=== PATIENT | male | born 1940 | race Caucasian/White ===

== ENCOUNTER → 2017-11-29 | Outpatient (CLI) | payer OTHER ==
[~2017-11-29] VITALS: Ht 177.8 cm; Wt 104.3 kg
[~2017-11-29] MED LIST: REGADENOSON 0.4 MG/5 ML PF SYG IVP SCH
== END | disposition home or self-care (01) ==
LOC: RAH 08:58
PROVIDERS: ATTEND Family Medicine
DX: I10 Essential (primary) hypertension (principal); I20.1 Angina pectoris with documented spasm; R53.83 Other fatigue
CPT/HCPCS: 78452; 93017; 96374; J2785; A9500 ×2

== ENCOUNTER 2019-07-14 09:55 | Inpatient (IN) | payer OTHER ==
[~2019-07-14] VITALS: Ht 177.8 cm; Wt 106.6 kg
[2019-07-14] MEDS ORDERED: MORPHINE SULFATE 4 MG/1ML SYG ONE (10:30)
[2019-07-14 10:41] LABS: BASOPHILS % (AUTO) 0.5 % (0.0-5.0); HEMATOCRIT 37.9 % (42-54); LYMPHOCYTES % (AUTO) 10.5 % (21.0-51.0); MEAN CORPUSCULAR HEMOGLOBIN 31.9 pg (27.0-33.0); MEAN CORPUSCULAR HGB CONC 33.8 g/dL (32.0-36.0); MEAN CORPUSCULAR VOLUME 94.5 fL (79-99); MONOCYTES % (AUTO) 5.6 % (3.0-13.0); NEUTROPHILS % (AUTO) 78.8 % (40.0-77.0); PLATELET COUNT (AUTO) 126 K/uL (130-400); RED BLOOD CELL COUNT(AUTO) 4.01 MIL/uL (4.50-6.20); RED CELL DISTRIBUTION WIDTH 14.1 % (11.0-15.5); WHITE BLOOD COUNT (AUTO) 7.7 K/uL (4.8-10.8)
[2019-07-14 10:46] LABS: CREATININE 1.2 mg/dL (0.5-1.5); POTASSIUM 3.8 mmol/L (3.5-5.1)
[2019-07-14 10:47] LABS: INR 1.01 (0.85-1.15); PARTIAL THROMBOPLASTIN TIME 30.4 SEC (26.3-35.5); PROTHROMBIN TIME 10.9 SEC (9.6-11.6)
[2019-07-14 10:50] LABS: ALBUMIN 3.8 g/dL (3.5-5.0); BILIRUBIN,TOTAL 0.9 mg/dL (0.2-1.0); TOTAL PROTEIN, SERUM 6.9 g/dL (6.0-8.3)
[2019-07-14 13:43] VITALS: BP 151/80
--- NOTE | 2019-07-14 14:56 | NUR ---
[facility] CM spoke to pt's spouse Lidia Youssef . Discussed dc plans. Per spouse, pt is independent prior to the fall/admission, lives at home with spouse and spouse's brother who has dementia. Spouse verbalized they have a walker, wheelchair, shower chair, cane that is mainly used by brother, but available for pt if needed. Denies any other equipments/services. Feels safe to go back home. Discussed possible need for short term rehab if MD recommends, spouse is agreeable, but prefers for pt to go home as much as possible. Informed spouse pt is pending ortho consult, will wait for MD recommendations. Will call spouse again once closer to DC to discuss any needs. Spouse verbalized understanding, given CM# jesease spouse has a questions regarding POC. DC plan to home vs SNF. CM to cont to follow up. Addendum: 07/14/19 at 1501 by HAWA FRENCH LVN CM Amended: Links added.
[2019-07-14 15:05] LABS: APPEARANCE,URINE Clear (CLEAR); BILIRUBIN,URINE Negative (NEGATIVE); COLOR,URINE Yellow (YELLOW); GLUCOSE, URINE (UA) Negative (NEGATIVE); KETONES,URINE Negative (NEGATIVE); LEUKOCYTE ESTERASE ,URINE Negative (NEGATIVE); NITRATE,URINE Negative (NEGATIVE); OCCULT BLOOD,URINE Negative (NEGATIVE); PH,URINE 6.5 (5.0-8.0); PROTEIN,URINE Negative (NEGATIVE)
[2019-07-14 16:43] VITALS: BP 126/72
[2019-07-14] MEDS: SODIUM CHLORIDE 0.9% 1000ML 1,000 ML IV SCH (17:37)
[2019-07-14] MEDS ORDERED: CLOP75TA32 PO (17:41)
[2019-07-14] MEDS ORDERED: AMLO2.5T4 PO (17:41)
[2019-07-14] MEDS ORDERED: POTA99TA21 PO (17:54)
[2019-07-14] MEDS ORDERED: ALLO300T2 PO (17:54)
[2019-07-14] MEDS ORDERED: LORA10TA7 PO (17:54)
[2019-07-14] MEDS ORDERED: MULT-1203 PO (17:54)
[2019-07-14] MEDS ORDERED: ASCO250T70 PO (17:54)
[2019-07-14] MEDS ORDERED: FISH1CAP63 PO (17:54)
[2019-07-14] MEDS ORDERED: GEMF600T5 PO (17:54)
[2019-07-14] MEDS ORDERED: FURO20TA4 PO (17:54)
[2019-07-14] MEDS ORDERED: CHOL-4 PO (17:54)
[2019-07-14] MEDS ORDERED: VITA1CAP PO (17:54)
[2019-07-14] MEDS ORDERED: LISI-613 PO (17:54)
[2019-07-14] MEDS ORDERED: CINN500C PO (17:54)
[2019-07-14] MEDS ORDERED: FURO40TA5 PO (17:54)
[2019-07-14] MEDS ORDERED: BRIM2.5D OP (18:05)
[2019-07-14] MEDS ORDERED: CARB15DR OP (18:08)
[2019-07-14] MEDS ORDERED: OLOP2.5D5 OS (18:08)
[2019-07-14] MEDS ORDERED: DORZ10DR10 OU (18:11)
[2019-07-14] MEDS ORDERED: LATA7.5D OU (18:11)
[2019-07-14] MEDS ORDERED: DIPH25TA22 PO (18:14)
[2019-07-14 19:20] VITALS: BP 123/75
[2019-07-14] MEDS: LISINOPRIL 20 MG TABLET PO SCH (20:36)
[2019-07-14] MEDS: FUROSEMIDE 20 MG TABLET PO SCH (20:36)
[2019-07-14] MEDS: GEMFIBROZIL 600 MG TABLET PO SCH (20:36)
[2019-07-14] MEDS: ONDANSETRON HCL 4 MG/2 ML VIAL IVP PRN (20:37)
[2019-07-14] MEDS: MEPERIDINE-PF 25 MG/ML SYG IV PRN (20:38)
[2019-07-14] MEDS: DORZOLAMIDE HCL/TIMOLOL MALEAT DROPS 10 ML BOTTLE OU SCH (20:38)
[2019-07-14] MEDS: BRIMONIDINE TARTRATE 0.2% 5 ML BOTTLE OP SCH (20:38)
[2019-07-14] MEDS: ARTIFICAL TEARS SOL 15 ML OP SCH (20:38)
[2019-07-14] MEDS: LATANOPROST 2.5 ML DROPS OU SCH (20:39)
[2019-07-14] MEDS: POTASSIUM GLUCONATE 99 MG PO SCH (20:39)
[2019-07-14 22:22] VITALS: BP 129/73
[2019-07-14] MEDS: DIPHENHYDRAMINE HCL 25 MG CAPSULE PO SCH (22:49)
[2019-07-15] MEDS: ONDANSETRON HCL 4 MG/2 ML VIAL IVP PRN ×2 (00:59→18:56)
[2019-07-15] MEDS: MEPERIDINE-PF 50 MG/ML SYG IVP PRN (00:59)
[2019-07-15 03:55] VITALS: BP 138/82
[2019-07-15] MEDS: SODIUM CHLORIDE 0.9% 1000ML 1,000 ML IV SCH ×2 (05:33→09:02)
[2019-07-15 08:40] VITALS: BP 116/72
[2019-07-15] MEDS: LORATADINE 10 MG TABLET PO SCH (08:59)
[2019-07-15] MEDS: DORZOLAMIDE HCL/TIMOLOL MALEAT DROPS 10 ML BOTTLE OU SCH ×2 (09:00→19:59)
[2019-07-15] MEDS: OLOPATADINE HCL 0.1% 5ML DROPS OS SCH (09:00)
[2019-07-15] MEDS: GEMFIBROZIL 600 MG TABLET PO SCH ×2 (09:00→19:58)
[2019-07-15] MEDS: LATANOPROST 2.5 ML DROPS OU SCH ×2 (09:00→19:59)
[2019-07-15] MEDS: AMLODIPINE BESYLATE 2.5 MG TAB PO SCH (09:00)
[2019-07-15] MEDS: PANTOPRAZOLE SODIUM 40 MG TABLET.DR PO SCH (09:00)
[2019-07-15] MEDS: ARTIFICAL TEARS SOL 15 ML OP SCH ×2 (09:00→20:01)
[2019-07-15] MEDS: LISINOPRIL 20 MG TABLET PO SCH ×2 (09:00→19:57)
[2019-07-15] MEDS ORDERED: PANTOPRAZOLE 40 MG/VIAL IVP SCH (09:00)
[2019-07-15] MEDS: BRIMONIDINE TARTRATE 0.2% 5 ML BOTTLE OP SCH ×2 (09:00→20:03)
[2019-07-15] MEDS: ALLOPURINOL 300 MG TABLET PO SCH (09:01)
[2019-07-15] MEDS: FUROSEMIDE 40 MG TABLET PO SCH (09:01)
[2019-07-15] MEDS: ENOXAPARIN SODIUM 30 MG/0.3 ML SQ SCH (09:02)
[2019-07-15 11:00] VITALS: BP 119/71
[2019-07-15 16:30] VITALS: BP 123/71
[2019-07-15] MEDS: MEPERIDINE-PF 25 MG/ML SYG IV PRN (18:56)
[2019-07-15 19:13] VITALS: BP 124/74
[2019-07-15] MEDS: POTASSIUM GLUCONATE 99 MG PO SCH (19:22)
[2019-07-15] MEDS: DIPHENHYDRAMINE HCL 25 MG CAPSULE PO SCH (19:57)
[2019-07-15] MEDS: FUROSEMIDE 20 MG TABLET PO SCH (19:58)
[2019-07-15 23:23] VITALS: BP 98/68
[2019-07-16 03:37] VITALS: BP 121/69
[2019-07-16] MEDS: SODIUM CHLORIDE 0.9% 1000ML 1,000 ML IV SCH ×2 (04:18→16:42)
[2019-07-16] MEDS: ONDANSETRON HCL 4 MG/2 ML VIAL IVP PRN (04:36)
[2019-07-16] MEDS: MEPERIDINE-PF 25 MG/ML SYG IV PRN (04:36)
[2019-07-16 05:44] LABS: BASOPHILS % (AUTO) 0.5 % (0.0-5.0); EOSINOPHILS % (AUTO) 3.6 % (0.0-8.0); HEMATOCRIT 35.1 % (42-54); LYMPHOCYTES % (AUTO) 12.9 % (21.0-51.0); MEAN CORPUSCULAR HEMOGLOBIN 31.6 pg (27.0-33.0); MEAN CORPUSCULAR VOLUME 95.6 fL (79-99); NEUTROPHILS % (AUTO) 73.3 % (40.0-77.0); PLATELET COUNT (AUTO) 121 K/uL (130-400); RED BLOOD CELL COUNT(AUTO) 3.67 MIL/uL (4.50-6.20); RED CELL DISTRIBUTION WIDTH 14.3 % (11.0-15.5); WHITE BLOOD COUNT (AUTO) 8.4 K/uL (4.8-10.8)
[2019-07-16 06:13] LABS: ALBUMIN 3.3 g/dL (3.5-5.0); BILIRUBIN,TOTAL 1.1 mg/dL (0.2-1.0); CREATININE 1.1 mg/dL (0.5-1.5); POTASSIUM 3.8 mmol/L (3.5-5.1); TOTAL PROTEIN, SERUM 6.4 g/dL (6.0-8.3)
[2019-07-16 08:17] VITALS: BP 132/73
[2019-07-16] MEDS: GEMFIBROZIL 600 MG TABLET PO SCH ×2 (08:49→20:39)
[2019-07-16] MEDS: AMLODIPINE BESYLATE 2.5 MG TAB PO SCH (08:49)
[2019-07-16] MEDS: LISINOPRIL 20 MG TABLET PO SCH ×2 (08:50→20:39)
[2019-07-16] MEDS: PANTOPRAZOLE SODIUM 40 MG TABLET.DR PO SCH (08:50)
[2019-07-16] MEDS: FUROSEMIDE 40 MG TABLET PO SCH (08:50)
[2019-07-16] MEDS: LATANOPROST 2.5 ML DROPS OU SCH ×2 (08:50→20:45)
[2019-07-16] MEDS: LORATADINE 10 MG TABLET PO SCH (08:50)
[2019-07-16] MEDS: ALLOPURINOL 300 MG TABLET PO SCH (08:50)
[2019-07-16] MEDS: OLOPATADINE HCL 0.1% 5ML DROPS OS SCH (08:51)
[2019-07-16] MEDS: DORZOLAMIDE HCL/TIMOLOL MALEAT DROPS 10 ML BOTTLE OU SCH ×2 (08:51→20:45)
[2019-07-16] MEDS: BRIMONIDINE TARTRATE 0.2% 5 ML BOTTLE OP SCH ×2 (08:51→20:45)
[2019-07-16] MEDS: ARTIFICAL TEARS SOL 15 ML OP SCH ×2 (08:51→20:45)
[2019-07-16] MEDS: ENOXAPARIN SODIUM 30 MG/0.3 ML SQ SCH (08:52)
[2019-07-16] MEDS ORDERED: BISACODYL 5 MG TABLET.DR PO PRN (10:00)
[2019-07-16] MEDS ORDERED: BISACODYL 5 MG TABLET.DR PO SCH (10:04)
[2019-07-16 11:35] VITALS: BP 119/63
[2019-07-16 17:46] VITALS: BP 111/58
[2019-07-16 19:00] VITALS: BP 106/61
[2019-07-16] MEDS: DIPHENHYDRAMINE HCL 25 MG CAPSULE PO SCH (20:39)
[2019-07-16] MEDS: FUROSEMIDE 20 MG TABLET PO SCH (20:39)
[2019-07-16] MEDS: POTASSIUM GLUCONATE 99 MG PO SCH (20:46)
[2019-07-16 23:00] VITALS: BP 116/64
[2019-07-17] VITALS (24 sets, daily range): BP systolic 109–132; BP diastolic 60–80
[2019-07-17] MEDS: MEPERIDINE-PF 25 MG/ML SYG IV PRN (03:06)
[2019-07-17] MEDS: SODIUM CHLORIDE 0.9% 1000ML 1,000 ML IV SCH ×2 (06:00→15:51)
[2019-07-17] MEDS ORDERED: LACTATED RINGERS 1000ML 1,000 ML IV ONE (06:05)
[2019-07-17] MEDS ORDERED: SUCCINYLCHOLINE 200MG/10ML SYR ONE (06:35)
[2019-07-17] MEDS ORDERED: PROPOFOL 10 MG/ML 20ML VIAL IV ONE (06:36)
[2019-07-17] MEDS ORDERED: FENTANYL CITRATE PF 50 MCG/1 ML 5ML AMP IV ONE (06:36)
[2019-07-17] MEDS ORDERED: MIDAZOLAM HCL 1 MG/ML 2ML VIAL ONE (06:36)
[2019-07-17] MEDS ORDERED: ROCURONIUM 10MG/1ML SYR 10 MG/ML ML ONE (06:36)
--- NOTE | 2019-07-17 07:00 | NUR ---
PER PATRICIA, RN PATIENT TRANSFERRED TO [facility] FOR ORIF OF RIGHT HIP BY DR. KERR AT 0630.
[2019-07-17] MEDS ORDERED: LIDOCAINE PF 2% 5ML ABBOJECT ONE (07:03)
[2019-07-17] MEDS ORDERED: EPHEDRINE SULFATE 50 MG/ML AMPULE ONE (07:06)
[2019-07-17] MEDS ORDERED: DEXAMETHASONE SOD PHOSPHATE 10MG/ML 1ML VIAL ONE (07:09)
[2019-07-17] MEDS ORDERED: ONDANSETRON HCL 4 MG/2 ML VIAL ONE (07:10)
[2019-07-17] MEDS ORDERED: NEOSTIGMINE 5MG/5ML SYR IV ONE (07:10)
[2019-07-17] MEDS ORDERED: GLYCOPYRROLATE 1 MG/5 ML SYRINGE ONE (07:10)
[2019-07-17] MEDS ORDERED: ALBUMIN (HUMAN) 5% 250 ML IV ONE (07:12)
[2019-07-17] MEDS ORDERED: HETASTARCH IN 0.9 % NACL 500 ML IV ONE (07:12)
[2019-07-17] MEDS ORDERED: CEFAZOLIN SODIUM 1 GM VIAL ONE (07:30)
[2019-07-17] MEDS: PANTOPRAZOLE SODIUM 40 MG TABLET.DR PO SCH (07:30)
[2019-07-17] MEDS ORDERED: MEPERIDINE-PF 25 MG/ML SYG ONE ×2 (08:10→08:19)
[2019-07-17] MEDS: LATANOPROST 2.5 ML DROPS OU SCH ×2 (09:00→20:49)
[2019-07-17] MEDS: BRIMONIDINE TARTRATE 0.2% 5 ML BOTTLE OP SCH ×2 (09:00→20:49)
[2019-07-17] MEDS: LISINOPRIL 20 MG TABLET PO SCH ×2 (09:00→20:47)
[2019-07-17] MEDS: ALLOPURINOL 300 MG TABLET PO SCH (09:00)
[2019-07-17] MEDS: LORATADINE 10 MG TABLET PO SCH (09:00)
[2019-07-17] MEDS: AMLODIPINE BESYLATE 2.5 MG TAB PO SCH (09:00)
[2019-07-17] MEDS: FUROSEMIDE 40 MG TABLET PO SCH (09:00)
[2019-07-17] MEDS: DORZOLAMIDE HCL/TIMOLOL MALEAT DROPS 10 ML BOTTLE OU SCH ×2 (09:00→20:49)
[2019-07-17] MEDS: ARTIFICAL TEARS SOL 15 ML OP SCH ×2 (09:00→20:49)
[2019-07-17] MEDS: GEMFIBROZIL 600 MG TABLET PO SCH ×2 (09:00→20:47)
[2019-07-17] MEDS: OLOPATADINE HCL 0.1% 5ML DROPS OS SCH (09:00)
[2019-07-17] MEDS: ENOXAPARIN SODIUM 30 MG/0.3 ML SQ SCH (09:00)
--- NOTE | 2019-07-17 09:00 | NUR ---
REPORT RECEIVED FROM ANDRZEJ RN (PACU). PATIENT S/P ORIF RIGHT HIP BY DR. KERR UNDER GENERAL ANESTHESIA WITH SCDS IN PLACE, DRESSING DRY AND INTACT. NO DRAINS NOTED. PATIENT ALREADY VOIDED. PATIENT STABLE AT THIS TIME.
--- NOTE | 2019-07-17 12:25 | NUR ---
CM Note: [facility] pending approval CM spoke to pt's spouse Lidia, updated w/POC, made aware discussed dcp w/Dr Cox and recommends rehab. Spouse agreeable for short term rehab placement as it would be difficult for her to fully take care of pt. Aware pt agreed for [facility], spouse is agreeable for [facility]. Spouse requested provider info after [facility]. Informed spouse provider are usually private pay, but will have [facility] made aware and will coordinate w/spouse and pt. Spouse will have to assess pt's home situtation once dc'd home. Spouse verbalized understanding and expressed that she is thankful for the information given. Faxed order, clinicals, PASRR, Covid Assessment, confirmation received. Spoke to Gloria w/[facility], received clinicals, aware pending PT eval and treat, will send notes once available. Aware annticipated dcp 24-48hrs pending surgeon clearance. EMS filled out pending to be faxed w/current date flagged in chart, primary nurse to [facility] once pt ready to DC. Primary nurse aware. CM to cont to follow up. CM informed [facility], stated will contact spouse and will do a home visit once pt is dc'd home.
--- NOTE | 2019-07-17 14:30 | NUR ---
[address] RN FROM [facility] [place] [facility] TO COLLECT TEST SAMPLE FOR COVID 19. MELISSA HERNANDEZ (CHARGE NURSE) ASSISTED WITH PROCEDURE. PENDING RESULTS.
[2019-07-17] MEDS: FUROSEMIDE 20 MG TABLET PO SCH (20:47)
[2019-07-17] MEDS: DIPHENHYDRAMINE HCL 25 MG CAPSULE PO SCH (20:48)
[2019-07-17] MEDS: POTASSIUM GLUCONATE 99 MG PO SCH (20:51)
[2019-07-18] VITALS (9 sets, daily range): BP systolic 92–158; BP diastolic 50–71
[2019-07-18] MEDS: MEPERIDINE-PF 25 MG/ML SYG IV PRN (00:15)
[2019-07-18] MEDS: SODIUM CHLORIDE 0.9% 1000ML 1,000 ML IV SCH ×2 (03:37→15:23)
[2019-07-18] MEDS: PANTOPRAZOLE SODIUM 40 MG TABLET.DR PO SCH (06:48)
[2019-07-18] MEDS ORDERED: APIXABAN 2.5 MG TABLET PO ONE (08:43)
[2019-07-18] MEDS: MEPERIDINE-PF 50 MG/ML SYG IVP PRN (08:55)
[2019-07-18] MEDS: GEMFIBROZIL 600 MG TABLET PO SCH ×2 (08:56→20:31)
[2019-07-18] MEDS: ALLOPURINOL 300 MG TABLET PO SCH (08:57)
[2019-07-18] MEDS: FUROSEMIDE 40 MG TABLET PO SCH (08:57)
[2019-07-18] MEDS: LORATADINE 10 MG TABLET PO SCH (08:57)
[2019-07-18] MEDS: AMLODIPINE BESYLATE 2.5 MG TAB PO SCH (08:57)
[2019-07-18] MEDS: LISINOPRIL 20 MG TABLET PO SCH ×2 (08:58→20:31)
[2019-07-18] MEDS: DORZOLAMIDE HCL/TIMOLOL MALEAT DROPS 10 ML BOTTLE OU SCH ×2 (09:00→20:32)
[2019-07-18] MEDS: BRIMONIDINE TARTRATE 0.2% 5 ML BOTTLE OP SCH ×2 (09:00→20:33)
[2019-07-18] MEDS: ENOXAPARIN SODIUM 30 MG/0.3 ML SQ SCH (09:00)
[2019-07-18] MEDS: OLOPATADINE HCL 0.1% 5ML DROPS OS SCH (09:00)
[2019-07-18] MEDS: LATANOPROST 2.5 ML DROPS OU SCH ×2 (09:00→20:32)
[2019-07-18] MEDS: ARTIFICAL TEARS SOL 15 ML OP SCH ×2 (09:00→20:33)
[2019-07-18] MEDS: ONDANSETRON HCL 4 MG/2 ML VIAL IVP PRN (09:03)
--- NOTE | 2019-07-18 12:33 | NUR ---
cm note spoke to hannah dominguez with [facility] and states pt is still pending approval, still pending their covid swab results. no approval yet. will let cm know when approved. updated Pamela primary nurse.
--- NOTE | 2019-07-18 16:45 | NUR ---
cm note faxed clinical update to hannah with [facility] as requested. still pending approval.
[2019-07-18] MEDS: DIPHENHYDRAMINE HCL 25 MG CAPSULE PO SCH (20:30)
[2019-07-18] MEDS: FUROSEMIDE 20 MG TABLET PO SCH (20:31)
[2019-07-18] MEDS: APIXABAN 2.5 MG TABLET PO SCH (20:31)
[2019-07-18] MEDS: POTASSIUM GLUCONATE 99 MG PO SCH (20:42)
[2019-07-19] MEDS: MEPERIDINE-PF 25 MG/ML SYG IV PRN ×2 (02:25→09:25)
[2019-07-19] MEDS: SODIUM CHLORIDE 0.9% 1000ML 1,000 ML IV SCH ×3 (03:09→21:16)
--- NOTE | 2019-07-19 03:20 | NUR ---
NOTE 0225 PATIENT REPORTS HAVING PAIN ON RIGHT THIGH/HIP AREA. MEDICATED WITH DEMEROL. AT THIS TIME HE ALSO REPORTS FEELING PAIN ON HIS PENIS WHEN HE URINATES AND THAT HE IS ONLY URINATING A LITTLE AT A TIME. NOTED HIS LOWER ABDOMEN LARGER THAN BEFORE. APPLIED SOME GENTLE PRESSURE WITH HIS PERMISSION AND SAYS HE PAIN IS INCREASED ON PENIS AND NOT MUCH ON LOWER ABDOMEN. WILL OBTAIN BLADDER SCANNER TO SEE IF HE IS HOLDING URINE IN BLADDER. EXPLAIN THIS TO PATIENT AND HE IS AGREEABLE. 0238 BLADDER SCANNER USED TO DO SCAN. SCANNER READ GREATER THAN 999ML ON [address] ROGER. [address] ROGER ABOUT PATIENT'S SYMPTOMS AND BLADDER SCAN RESULT. ORDERS RECEIVED TO INSERT NAVARRETE AND LEAVE IN. START PATIENT ON FLOMAX 0.4MG PO DAILY. 0255 INFORMED PATIENT OF NEW ORDERS FOR NAVARRETE PLACEMENT AND FLOMAX ADDED TO HIS MEDICATION REGIMEN. EXPLAINED THAT IS FOR. INSERTED 16FR USING STERILE TECHNIQUE WITHOUT ANY PROBLEMS. INFLATED BALLOON, SECURED CATHETER TO LEG AND ALLOWED TO DRAIN. 0306 NAVARRETE DRAINING INTO DRAINAGE BAG. EMPTIED 1000ML. PATIENT REPORTS STARTING TO FEEL SOME RELIEF OF THE PAIN IN PENIS AND LOWER ABDOMEN.
[2019-07-19 04:00] VITALS: BP 109/59
[2019-07-19] MEDS: PANTOPRAZOLE SODIUM 40 MG TABLET.DR PO SCH (06:27)
[2019-07-19 08:00] VITALS: BP 118/68
[2019-07-19] MEDS: BRIMONIDINE TARTRATE 0.2% 5 ML BOTTLE OP SCH ×2 (09:00→21:00)
[2019-07-19] MEDS: OLOPATADINE HCL 0.1% 5ML DROPS OS SCH (09:00)
[2019-07-19] MEDS: LATANOPROST 2.5 ML DROPS OU SCH ×2 (09:00→21:00)
[2019-07-19] MEDS: ARTIFICAL TEARS SOL 15 ML OP SCH ×2 (09:00→21:00)
[2019-07-19] MEDS: ENOXAPARIN SODIUM 30 MG/0.3 ML SQ SCH (09:00)
[2019-07-19] MEDS: DORZOLAMIDE HCL/TIMOLOL MALEAT DROPS 10 ML BOTTLE OU SCH ×2 (09:00→21:00)
[2019-07-19] MEDS: ALLOPURINOL 300 MG TABLET PO SCH (09:21)
[2019-07-19] MEDS: AMLODIPINE BESYLATE 2.5 MG TAB PO SCH (09:21)
[2019-07-19] MEDS: APIXABAN 2.5 MG TABLET PO SCH ×2 (09:21→21:13)
[2019-07-19] MEDS: FUROSEMIDE 40 MG TABLET PO SCH (09:21)
[2019-07-19] MEDS: LORATADINE 10 MG TABLET PO SCH (09:21)
[2019-07-19] MEDS: TAMSULOSIN HCL 0.4 MG CAP.ER.24H PO SCH (09:21)
[2019-07-19] MEDS: LISINOPRIL 20 MG TABLET PO SCH ×2 (09:21→21:13)
[2019-07-19] MEDS: GEMFIBROZIL 600 MG TABLET PO SCH ×2 (09:21→21:13)
[2019-07-19] MEDS: ONDANSETRON HCL 4 MG/2 ML VIAL IVP PRN (09:25)
[2019-07-19 11:00] VITALS: BP 107/64
[2019-07-19 16:00] VITALS: BP_SYST 107; BP_SYST 127; BP_DIAS 53; BP_DIAS 82
[2019-07-19 19:43] VITALS: BP 120/68
[2019-07-19] MEDS: POTASSIUM GLUCONATE 99 MG PO SCH (21:00)
[2019-07-19] MEDS: DIPHENHYDRAMINE HCL 25 MG CAPSULE PO SCH (21:13)
[2019-07-19] MEDS: FUROSEMIDE 20 MG TABLET PO SCH (21:13)
[2019-07-20] VITALS (7 sets, daily range): BP systolic 96–130; BP diastolic 57–67
[2019-07-20] MEDS: MEPERIDINE-PF 25 MG/ML SYG IV PRN (01:03)
[2019-07-20 05:31] LABS: CREATININE 1.1 mg/dL (0.5-1.5); POTASSIUM 3.4 mmol/L (3.5-5.1)
[2019-07-20] MEDS: PANTOPRAZOLE SODIUM 40 MG TABLET.DR PO SCH (06:48)
[2019-07-20] MEDS: ENOXAPARIN SODIUM 30 MG/0.3 ML SQ SCH (08:39)
[2019-07-20] MEDS: FUROSEMIDE 40 MG TABLET PO SCH (08:40)
[2019-07-20] MEDS: APIXABAN 2.5 MG TABLET PO SCH ×2 (08:40→22:01)
[2019-07-20] MEDS: GEMFIBROZIL 600 MG TABLET PO SCH ×2 (08:40→22:01)
[2019-07-20] MEDS: LORATADINE 10 MG TABLET PO SCH (08:41)
[2019-07-20] MEDS: AMLODIPINE BESYLATE 2.5 MG TAB PO SCH (08:41)
[2019-07-20] MEDS: ALLOPURINOL 300 MG TABLET PO SCH (08:41)
[2019-07-20] MEDS: TAMSULOSIN HCL 0.4 MG CAP.ER.24H PO SCH (08:42)
[2019-07-20] MEDS: LISINOPRIL 20 MG TABLET PO SCH ×2 (08:42→22:02)
[2019-07-20] MEDS: DORZOLAMIDE HCL/TIMOLOL MALEAT DROPS 10 ML BOTTLE OU SCH ×2 (08:44→21:00)
[2019-07-20] MEDS: BRIMONIDINE TARTRATE 0.2% 5 ML BOTTLE OP SCH ×2 (08:44→21:00)
[2019-07-20] MEDS: LATANOPROST 2.5 ML DROPS OU SCH ×2 (08:44→21:00)
[2019-07-20] MEDS: OLOPATADINE HCL 0.1% 5ML DROPS OS SCH (08:44)
[2019-07-20] MEDS: ARTIFICAL TEARS SOL 15 ML OP SCH ×2 (08:44→21:00)
[2019-07-20] MEDS ORDERED: LIDOCAINE HCL-MPF 1% 2ML VIAL IV PRN (09:45)
[2019-07-20] MEDS ORDERED: POTASSIUM CHLORIDE 10% ELIXIR 20 MEQ/15 ML UDCUP PO PRN (09:45)
[2019-07-20] MEDS ORDERED: POTASSIUM CHLORIDE 20MEQ/100ML 100 ML IV PRN (09:45)
[2019-07-20] MEDS: POTASSIUM CHLORIDE 20 MEQ ERTAB PO PRN ×2 (09:56→12:11)
[2019-07-20] MEDS ORDERED: MAGNESIUM 2GM PREMIX 50ML 50 ML IV PRN (11:00)
--- NOTE | 2019-07-20 11:13 | NUR ---
CM Note: [facility] pending approval CM spoke to Omayra, received updatd clinicals today, forwarded to insurance. Pt pending approval at this time. Primary nurse aware. CM to cont to follow up.
[2019-07-20] MEDS: MEPERIDINE-PF 50 MG/ML SYG IVP PRN (13:07)
[2019-07-20] MEDS: POTASSIUM GLUCONATE 99 MG PO SCH (21:00)
[2019-07-20] MEDS: DIPHENHYDRAMINE HCL 25 MG CAPSULE PO SCH (22:01)
[2019-07-20] MEDS: FUROSEMIDE 20 MG TABLET PO SCH (22:03)
[2019-07-21 03:44] VITALS: BP 105/57
[2019-07-21 05:03] LABS: BASOPHILS % (AUTO) 0.3 % (0.0-5.0); EOSINOPHILS % (AUTO) 6.6 % (0.0-8.0); HEMATOCRIT 28.5 % (42-54); LYMPHOCYTES % (AUTO) 17.3 % (21.0-51.0); MEAN CORPUSCULAR HEMOGLOBIN 31.9 pg (27.0-33.0); MEAN CORPUSCULAR HGB CONC 33.7 g/dL (32.0-36.0); MEAN CORPUSCULAR VOLUME 94.7 fL (79-99); MONOCYTES % (AUTO) 7.1 % (3.0-13.0); NEUTROPHILS % (AUTO) 68.1 % (40.0-77.0); PLATELET COUNT (AUTO) 138 K/uL (130-400); RED BLOOD CELL COUNT(AUTO) 3.01 MIL/uL (4.50-6.20); RED CELL DISTRIBUTION WIDTH 13.6 % (11.0-15.5); WHITE BLOOD COUNT (AUTO) 6.4 K/uL (4.8-10.8)
[2019-07-21 05:21] LABS: CREATININE 1.1 mg/dL (0.5-1.5); POTASSIUM 3.1 mmol/L (3.5-5.1)
[2019-07-21 07:48] VITALS: BP 111/57
[2019-07-21] MEDS: BRIMONIDINE TARTRATE 0.2% 5 ML BOTTLE OP SCH (09:39)
[2019-07-21] MEDS: ARTIFICAL TEARS SOL 15 ML OP SCH (09:41)
[2019-07-21] MEDS: OLOPATADINE HCL 0.1% 5ML DROPS OS SCH (09:41)
[2019-07-21] MEDS: DORZOLAMIDE HCL/TIMOLOL MALEAT DROPS 10 ML BOTTLE OU SCH (09:41)
[2019-07-21] MEDS: LATANOPROST 2.5 ML DROPS OU SCH (09:42)
[2019-07-21] MEDS: SODIUM CHLORIDE 0.9% 1000ML 1,000 ML IV SCH (09:43)
[2019-07-21] MEDS: TAMSULOSIN HCL 0.4 MG CAP.ER.24H PO SCH (09:59)
[2019-07-21] MEDS: GEMFIBROZIL 600 MG TABLET PO SCH (09:59)
[2019-07-21] MEDS: AMLODIPINE BESYLATE 2.5 MG TAB PO SCH (09:59)
[2019-07-21] MEDS: LISINOPRIL 20 MG TABLET PO SCH (09:59)
[2019-07-21] MEDS: ALLOPURINOL 300 MG TABLET PO SCH (09:59)
[2019-07-21] MEDS: LORATADINE 10 MG TABLET PO SCH (09:59)
[2019-07-21] MEDS: FUROSEMIDE 40 MG TABLET PO SCH (09:59)
[2019-07-21] MEDS: PANTOPRAZOLE SODIUM 40 MG TABLET.DR PO SCH (10:00)
[2019-07-21] MEDS: APIXABAN 2.5 MG TABLET PO SCH (10:00)
[2019-07-21] MEDS: POTASSIUM CHLORIDE 20 MEQ ERTAB PO PRN ×3 (10:04→16:05)
[2019-07-21 11:36] VITALS: BP 101/65
--- NOTE | 2019-07-21 12:14 | NUR ---
GHANSHYAM NELSON CALLED SAID PATIENT IS ACCEPTED. LET NURSE KNOW OF ACCEPTANCE. SAID STILL PENDING DR. ROGER TO ROUND. EMS DATE UPDATED AND FAXED. COVID FORM AND EMS IN CHART. Addendum: 07/21/19 at 1216 by PRESLEY VERA RN CM Amended: Links added.
--- NOTE | 2019-07-21 17:22 | NUR ---
NOTIFIED OF RIGHT HIP XRAY NEEDED TO BE COMPLETED PRIOR TO APPOINTMENT W DR. CIRILO CHERRY LVN NOT AVAILABLE TO NOTIFY. NOTIFIED LAWRENCE LEIGH OF RIGHT HIP XRAY NEEDED TO BE DONE PRIOR TO APPOINTMENT WITH DR. KERR. XRAY TO BE TAKEN TO APPOINTMENT. REESE SAID HE WOULD NOTIFY JO ANN. REPORT WAS GIVEN TO LAWRENCE CHERRY PRIOR, JO ANN VERBALIZED UNDERSTANDING.
[2019-07-21 17:34] VITALS: BP 113/63
== END 2019-07-21 19:00 | DRG 481 ==
LOC: EDH 09:55 → EDHIP 11:00 → 3CH 13:42 → 3DH 07-20 16:25
PROVIDERS: ADMIT Family Medicine; ATTEND Family Medicine
PROC: 0QS606Z Reposition Right Upper Femur with Intramedullary Internal Fixation Device, Open Approach (ICD-10-PCS; principal; 2019-07-17 06:30)
DX: S72.141A Displaced intertrochanteric fracture of right femur, initial encounter for closed fracture (principal); D62 Acute posthemorrhagic anemia; E11.9 Type 2 diabetes mellitus without complications; I10 Essential (primary) hypertension; E78.5 Hyperlipidemia, unspecified; R33.9 Retention of urine, unspecified; W18.39XA Other fall on same level, initial encounter; Y93.89 Activity, other specified; Y92.89 Other specified places as the place of occurrence of the external cause; Y99.8 Other external cause status
CPT/HCPCS: 36415; 70450; 73502; 73503; 73562; 76770; 80048; 80053; 81003; 83735; 85025; 85610; 85730; 93005; 97039; A4344; C9113; G0378; J0330; J0690; J1100; J1650; J2001; J2175; J2250; J2270; J2405; J2704; J2710; J3010; J3475; J3490; J7030; J7120; P9045; Q0163

== ENCOUNTER → 2019-10-07 | Outpatient (CLI) | payer OTHER ==
[~2019-10-07] MED LIST changes: +ALLO300T2 PO; +AMLO2.5T4 PO; +ASCO250T70 PO; +BRIM2.5D OP; +CARB15DR OP; +CHOL-4 PO; +CINN500C PO; +CLOP75TA32 PO; +DIPH25TA22 PO; +DORZ10DR10 OU; +FISH1CAP63 PO; +FURO20TA4 PO; +FURO40TA5 PO; +GEMF600T5 PO; +LATA7.5D OU; +LISI-613 PO; +LORA10TA7 PO; +MULT-1203 PO; +OLOP2.5D5 OS; +POTA99TA21 PO; -REGADENOSON 0.4 MG/5 ML PF SYG IVP SCH; +VITA1CAP PO
== END | disposition home or self-care (01) ==
LOC: OIH 09:29
PROVIDERS: ATTEND Family Medicine
DX: J41.0 Simple chronic bronchitis (principal); M47.814 Spondylosis without myelopathy or radiculopathy, thoracic region
CPT/HCPCS: 71046

== ENCOUNTER → 2020-03-23 | Outpatient (CLI) | payer OTHER | END | disposition home or self-care (01) | LOC: OIH 14:51 | PROVIDERS: ATTEND Family Medicine | DX: M17.12 Unilateral primary osteoarthritis, left knee (principal) | CPT/HCPCS: 73562 ==

== ENCOUNTER → 2020-04-05 | Outpatient (CLI) | payer OTHER ==
[~2020-04-05] MED LIST changes: -GEMF600T5 PO; +GEMF600T89 PO; -LISI-613 PO; +LISI20TA24 PO
== END | disposition home or self-care (01) ==
LOC: OIH 14:47
PROVIDERS: ATTEND Family Medicine
DX: I10 Essential (primary) hypertension (principal); Z00.00 Encounter for general adult medical examination without abnormal findings
CPT/HCPCS: 71046

== ENCOUNTER → 2020-07-26 | Outpatient (CLI) | payer OTHER | END | disposition home or self-care (01) | LOC: RAH 10:28 | PROVIDERS: ATTEND Family Medicine | DX: N50.82 Scrotal pain (principal); N45.1 Epididymitis; I86.1 Scrotal varices; N43.3 Hydrocele, unspecified; N50.3 Cyst of epididymis | CPT/HCPCS: 76870 ==